=== PATIENT | male | born 1960 | race Caucasian/White ===

== ENCOUNTER → 2024-01-14 09:32 | Outpatient (CLI) | payer OTHER, SELFPAY ==
--- NOTE | 2024-01-14 09:34 | DI.MRI.S_ITS ---
PROCEDURE: MR HAND LT WO CON INDICATIONS: Recurrent dislocation, left finger TECHNIQUE: Noncontrast coronal T1 spin echo and T2 fast spin echo with fat saturation, axial proton density fast spin echo and T2 fast spin echo with fat saturation, sagittal T1 spin echo and STIR through the hand and fingers. COMPARISON: [facility], CR, XR HAND 3+ VIEWS LEFT, 11/02/2023, 16:17. FINDINGS: Image quality: Excellent. Bones: Percutaneous pinning transfixing the 4th middle phalanx. A metallic ring about the 4th metacarpal, creating artifacts and limits evaluation. 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 Interphalangeal joint(s): The accessory and proper collateral ligaments appear intact. The volar plate demonstrates normal morphology. The extensor central slips appear intact on sagittal images. Metacarpophalangeal joint(s): The accessory and proper collateral ligaments appear intact, as well as the volar plate and adjacent deep transverse metacarpal ligaments. The sagittal bands of the extensor epstein appear normal. Extensor apparatus: The central slips insert normally on the middle phalangeal base. The conjoint and terminal tendons insert normally on the distal phalangeal bases. More proximal portions of the extensor tendons also appear normal. Flexor apparatus: The flexor digitorum superficialis and profundus tendons both appear intact. All annular and cruciform pulleys appear intact, without adjacent soft tissue edema. Soft tissues: Visualized muscles demonstrate normal bulk and internal signal. No intramuscular masses identified. No ganglion cysts. IMPRESSION: Percutaneous pinning transfixing the 4th middle phalanx. 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 Dictated by: Marah Turner M.D. on 01/14/2024 at 12:39 Approved by: Marah Turner M.D. on 01/14/2024 at 12:45
== END ==
LOC: MRI 09:34
PROVIDERS: Family Provider Family Medicine; PCP Family Medicine; Referring Provider Orthopaedic Surgery; Visit Provider Orthopaedic Surgery
DX: M24.445 Recurrent dislocation, left finger (principal); Z96.7 Presence of other bone and tendon implants
CPT/HCPCS: 73218